=== PATIENT | male | born 1965 | race African-American/Black ===

== ENCOUNTER 2022-06-09 02:38 | Observation (INO) | payer MEDICARE ==
[2022-06-09 03:32] LABS: #Eosinphils 0.3 10x3/uL (0.0-0.5); #Monocytes 0.5 10x3/uL (0.0-1.1); #Neutrophils 5.4 10x3/uL (1.5-8.4); %Basophils 0.4 % (0.0-2.0); %Eosinophils 4.2 % (0.0-6.0); %Lymphocytes 20.4 % (18.0-47.0); %Monocytes 5.7 % (0.0-10.0); %Neutrophils 69.2 % (40.0-75.0); Hemoglobin 11.4 g/dL (13.5-17.5); Mean Corpuscular HGB CONC 33.8 g/dL (32.0-36.0); Mean Corpuscular Volume 79.9 fl (81.2-95.1); Mean Platelet Volume 8.9 fl (7.4-10.4); Platelet Count 210 10x3/uL (150-450); RBC Distribution Width 13.3 % (11.5-14.5); Red Blood Cell (RBC) Count 4.22 10x6/uL (4.32-5.72); White Blood Cell (WBC) Count 7.8 10x3/uL (3.5-10.5)
[2022-06-09 03:47] LABS: ALT (SGPT) 13 U/L (8-55); AST (SGOT) 12 U/L (5-34); Acetaminophen Less than 10.0 mcg/mL (10.0-30.0); Albumin 4.2 g/dL (3.5-5.0); Alcohol Less than 10 mg/dL (Less than 10); Alkaline Phosphatase 65 U/L (40-110); Anion Gap 16 mmol/L (10-20); BUN (Urea Nitrogen) 12 mg/dL (8.4-25.7); Bilirubin, Total 0.6 mg/dL (0.2-1.2); Calc. Creatinine Clearance 0 mL/min (70-130); Calcium 10.1 mg/dL (7.8-10.44); Carbon Dioxide 25 mmol/L (22-29); Chloride 102 mmol/L (98-107); Estimated GFR 56; Globulin 3.2 g/dL (2.4-3.5); Glucose 163 mg/dL (70-105); Potassium 4.3 mmol/L (3.5-5.1); Protein, Total 7.4 g/dL (6.0-8.3); Salicylate Less than 8.0 mg/dL (15.0-30.0); Sodium 139 mmol/L (136-145)
[2022-06-09 04:06] LABS: CKMB 0.6 ng/mL (0-6.6)
[2022-06-09 06:03] LABS: Bilirubin Neg (Negative); Blood, Urine Negative (Negative); Clarity Slightly Cloudy (Clear); Glucose, Urine (Dipstick) Normal (Negative); Ketone, Urine Negative (Negative); Leukocyte Negative (Negative); Nitrite Negative (Negative); Protein, Urine (Dipstick) 30 mg/dl (Neg-Trace); Specific Gravity, Urine 1.005 (1.005-1.030); Urobilinogen Normal mg/dL (Less than 2); pH, Urine 6.5 (5.0-9.0)
[2022-06-09 06:11] LABS: Amphetamine Not Detected (NotDetected); Barbiturates Screen Not Detected (NotDetected); Benzodiazepine Screen Not Detected (NotDetected); Cocaine Metabolite Screen Not Detected (NotDetected); Methadone Not Detected (NotDetected); Methamphetamine Not Detected (NotDetected); Opiate Screen Not Detected (NotDetected); Oxycodone Screen Not Detected (NotDetected); Phencyclidine (PCP) Not Detected (NotDetected); THC/Cannabinoid Screen Not Detected (NotDetected); Tricyclic Screen Not Detected (NotDetected)
[2022-06-09 06:20] LABS: Bacteria/HPF Rare-Few HPF (None Seen); RBC/HPF 0-3 HPF (0-3)
[2022-06-09] MEDS ORDERED: Aspirin Chewable 81 MG TAB ONE (08:07)
[2022-06-09 09:14] LABS: SARS-CoV-2 NAA Rapid Test Not Detected (NotDetected)
[2022-06-09] MEDS ORDERED: Ondansetron PF 4 MG/2 ML Vial IVP PRN (10:30)
[2022-06-09] MEDS ORDERED: Ondansetron ODT 4 MG TAB PO PRN (10:30)
[2022-06-09] MEDS ORDERED: Sodium Chloride 0.9% 1,000 ML IV SCH (10:30)
[2022-06-09] MEDS ORDERED: Dextrose 50% Abboject 50 ML SYRINGE SLOW IVP PRN (10:34)
[2022-06-09] MEDS ORDERED: Dextrose 5% in Water 1,000 ML IV PRN (10:34)
[2022-06-09] MEDS ORDERED: HumaLOG 300 UNITS/3 ML VIAL SC PRN (10:34)
[2022-06-09] MEDS ORDERED: Nitroglycerin 0.4 MG TAB (25 Tab Bottle) SL PRN (10:36)
[2022-06-09 11:42] LABS: Magnesium 1.7 mg/dL (1.6-2.6)
[2022-06-09 16:00] VITALS: BMI 32.2
[2022-06-09] MEDS: Acetaminophen 325 MG TAB PO PRN (20:25)
[2022-06-09] MEDS: Atorvastatin Calcium 40 MG TAB PO SCH (20:26)
[2022-06-09] MEDS: Atenolol 50 MG TAB PO SCH (20:26)
[2022-06-09] MEDS: Famotidine 20 MG TAB PO SCH (20:26)
[2022-06-10] MEDS: HumaLOG 300 UNITS/3 ML VIAL SC PRN ×3 (05:16→18:00)
[2022-06-10 06:01] LABS: #Eosinphils 0.5 10x3/uL (0.0-0.5); #Monocytes 0.4 10x3/uL (0.0-1.1); #Neutrophils 2.8 10x3/uL (1.5-8.4); %Basophils 0.3 % (0.0-2.0); %Eosinophils 7.3 % (0.0-6.0); %Lymphocytes 42.6 % (18.0-47.0); %Monocytes 6.7 % (0.0-10.0); %Neutrophils 42.9 % (40.0-75.0); Mean Corpuscular HGB CONC 34.1 g/dL (32.0-36.0); Mean Corpuscular Hemoglobin 27.2 pg (27.0-33.0); Mean Corpuscular Volume 79.8 fl (81.2-95.1); Mean Platelet Volume 8.8 fl (7.4-10.4); Platelet Count 216 10x3/uL (150-450); RBC Distribution Width 13.2 % (11.5-14.5); Red Blood Cell (RBC) Count 4.05 10x6/uL (4.32-5.72); White Blood Cell (WBC) Count 6.5 10x3/uL (3.5-10.5)
[2022-06-10 06:18] LABS: Anion Gap 12 mmol/L (10-20); BUN (Urea Nitrogen) 19 mg/dL (8.4-25.7); Calc. Creatinine Clearance 87 mL/min (70-130); Calcium 9.7 mg/dL (7.8-10.44); Carbon Dioxide 27 mmol/L (22-29); Cardiac Risk 5.2 (Less than 4.5); Chloride 105 mmol/L (98-107); Cholesterol 161 mg/dl (< 200 Desired); Estimated GFR 68; Glucose 198 mg/dL (70-105); HDL Cholesterol 31 mg/dL (>60 Neg Risk); LDL Cholesterol, Calculated 108 mg/dL; Potassium 4.3 mmol/L (3.5-5.1); Sodium 140 mmol/L (136-145); Triglycerides 111 mg/dL (Less than 150)
[2022-06-10] MEDS ORDERED: Senokot S 8.6-50 MG TAB PO PRN (08:09)
[2022-06-10] MEDS: Losartan Potassium 50 MG TAB PO SCH (08:41)
[2022-06-10] MEDS: Famotidine 20 MG TAB PO SCH ×2 (08:41→22:38)
[2022-06-10] MEDS: Aspirin Chewable 81 MG TAB PO SCH (08:41)
[2022-06-10] MEDS: Acetaminophen 325 MG TAB PO PRN ×2 (12:30→18:02)
[2022-06-10 13:00] LABS: Hemoglobin A1c 6.5 % (4.0-6.0)
[2022-06-10] MEDS: metFORMIN 500 MG TAB PO SCH (17:23)
[2022-06-10] MEDS: Atorvastatin Calcium 40 MG TAB PO SCH (22:38)
[2022-06-10] MEDS: Atenolol 50 MG TAB PO SCH (22:38)
[2022-06-11 06:16] LABS: #Eosinphils 0.4 10x3/uL (0.0-0.5); #Monocytes 0.5 10x3/uL (0.0-1.1); #Neutrophils 3.7 10x3/uL (1.5-8.4); %Basophils 0.4 % (0.0-2.0); %Eosinophils 5.7 % (0.0-6.0); %Lymphocytes 37.9 % (18.0-47.0); %Neutrophils 48.7 % (40.0-75.0); Hemoglobin 10.7 g/dL (13.5-17.5); Mean Corpuscular HGB CONC 33.8 g/dL (32.0-36.0); Mean Corpuscular Hemoglobin 26.9 pg (27.0-33.0); Mean Corpuscular Volume 79.6 fl (81.2-95.1); Platelet Count 208 10x3/uL (150-450); RBC Distribution Width 13.1 % (11.5-14.5); Red Blood Cell (RBC) Count 3.98 10x6/uL (4.32-5.72); White Blood Cell (WBC) Count 7.7 10x3/uL (3.5-10.5)
[2022-06-11 06:34] LABS: Anion Gap 12 mmol/L (10-20); BUN (Urea Nitrogen) 17 mg/dL (8.4-25.7); Calc. Creatinine Clearance 96 mL/min (70-130); Calcium 9.8 mg/dL (7.8-10.44); Carbon Dioxide 26 mmol/L (22-29); Chloride 104 mmol/L (98-107); Estimated GFR 77; Glucose 160 mg/dL (70-105); Potassium 4.3 mmol/L (3.5-5.1); Sodium 138 mmol/L (136-145)
[2022-06-11] MEDS: Aspirin Chewable 81 MG TAB PO SCH (08:55)
[2022-06-11] MEDS: Losartan Potassium 50 MG TAB PO SCH (08:55)
[2022-06-11] MEDS: metFORMIN 500 MG TAB PO SCH (08:55)
[2022-06-11] MEDS: Famotidine 20 MG TAB PO SCH (08:55)
[2022-06-11 13:06] VITALS: BP 138/77; TEMP 98.2
[2022-06-11] MEDS: HumaLOG 300 UNITS/3 ML VIAL SC PRN (13:27)
== END 2022-06-11 17:00 | disposition home or self-care (01) ==
LOC: CSHERS 02:38 → CSHTELE 10:04
PROVIDERS: ADMIT Internal Medicine; ATTEND Family Medicine
DX: R07.89 Other chest pain (principal); I10 Essential (primary) hypertension; E78.5 Hyperlipidemia, unspecified; I25.10 Atherosclerotic heart disease of native coronary artery without angina pectoris; E03.9 Hypothyroidism, unspecified; E11.649 Type 2 diabetes mellitus with hypoglycemia without coma; F43.10 Post-traumatic stress disorder, unspecified; F20.9 Schizophrenia, unspecified; N17.9 Acute kidney failure, unspecified; Z20.822 Contact with and (suspected) exposure to COVID-19; Z79.82 Long term (current) use of aspirin; Z79.84 Long term (current) use of oral hypoglycemic drugs; Z79.899 Other long term (current) drug therapy; Z95.5 Presence of coronary angioplasty implant and graft
CPT/HCPCS: 71045; 80048 ×2; 80053; 80061; 80306; 80307; 82553; 82962 ×3; 83036; 83690; 83735; 84443; 84484 ×3; 85025 ×3; 93005; 93306; 94760 ×3; 97116; 99285; G0378 ×4; U0002; 36415; 36416; 81003; 81015; J1815; J7050

== ENCOUNTER 2022-08-05 14:04 | Emergency (ER) | payer MEDICARE | END 2022-08-05 17:17 | disposition home or self-care (01) | LOC: CSHERS 14:04 | DX: R51.9 Headache, unspecified (principal); E11.9 Type 2 diabetes mellitus without complications; I10 Essential (primary) hypertension; E78.5 Hyperlipidemia, unspecified; F17.220 Nicotine dependence, chewing tobacco, uncomplicated | CPT/HCPCS: 99283 ==